=== PATIENT | male | born 1955 | race Caucasian/White ===

== ENCOUNTER → 2017-02-19 | Outpatient (CLI) | payer BC ==
[~2017-02-19] MED LIST: AMIT25TA PO; ASPI1TAB PO; ATOR40TA PO; SILD50TA GT
--- NOTE | 2017-02-20 02:33 | REP ---
Clinical: Acute cough . Comparison: None . Technique: PA and lateral. Findings: The mediastinum and cardiac silhouette are normal. The lung shen are clear and without acute consolidation, effusion, or pneumothorax. The skeletal structures are intact and normal. Impression: 1. No acute cardiopulmonary process. Signed by Mario Samuel MD 02/20/2017 02:24 A
== END ==
LOC: M WUC 18:13
PROVIDERS: ATTEND Physician Assistant
DX: R05 Cough (principal)

== ENCOUNTER 2018-11-23 06:27 | Inpatient (IN) | payer BC ==
[~2018-11-23] VITALS: Ht 167.6 cm; Wt 83.1 kg
[~2018-11-23 06:27] MED LIST changes: -ATOR40TA PO; +ATOR40TA75 PO
[2018-11-23] MEDS ORDERED: VENTAER INH (06:37)
[2018-11-23 07:06] LABS: HEMOGLOBIN 15.4 g/dl (13.5-17.5); MEAN CORPUSCULAR HEMOGLOBIN 30.8 pg (27.0-33.0); PLATELET COUNT, AUTOMATED 292 10^3/uL (150-450); WHITE BLOOD COUNT 7.2 10^3/uL (4.0-10.0)
[2018-11-23 07:17] LABS: ABG BASE EXCESS 0.6 (-2.0-2.0); ABG HCO3 23.4 MEQ/L (22.0-26.0); ABG O2 SATURATION 99.6 % (95.0-99.0); ABG PARTIAL PRESSURE CO2 32.6 mmHg (35.0-45.0); ABG STANDARD HCO3 25.1 MEQ/L (22.0-26.0); ABG TOTAL CO2 24.4 MEQ/L (23.0-31.0); ABG pH (ARTERIAL) 7.473 UNITS (7.350-7.450)
[2018-11-23 07:34] LABS: ACETAMINOPHEN LEVEL < 2.0 UG/ML (10.0-30.0); ALBUMIN 4.3 GM/DL (3.2-5.2); ALT/SGPT 44 U/L (12-78); BILIRUBIN,DIRECT 0.2 MG/DL (0.0-0.2); BILIRUBIN,TOTAL 0.5 MG/DL (0.2-1.0); BLOOD UREA NITROGEN 18 MG/DL (7-18); CALCIUM LEVEL 8.8 MG/DL (8.8-10.2); CARBON DIOXIDE LEVEL 27 MEQ/L (21-32); CHLORIDE LEVEL 103 MEQ/L (98-107); CREATININE FOR GFR 1.18 MG/DL (0.70-1.30); ETHYL ALCOHOL (ETHANOL) < 0.003 % (0.000-0.010); GLOMERULAR FILTRATION RATE > 60.0 (>49); GLUCOSE, FASTING 101 MG/DL (70-100); POTASSIUM SERUM 4.1 MEQ/L (3.5-5.1); SALICYLATE LEVEL < 1.7 MG/DL (5.0-30.0); SODIUM LEVEL 140 MEQ/L (136-145); TOTAL PROTEIN 7.3 GM/DL (6.4-8.2)
[2018-11-23 09:46] LABS: AMPHETAMINES LEVEL URINE NEGATIVE (NEGATIVE); BARBITURATES URINE NEGATIVE (NEGATIVE); BENZODIAZEPINES URINE NEGATIVE (NEGATIVE); CANNABINOIDS URINE NEGATIVE (NEGATIVE); COCAINE METABOLITE URINE NEGATIVE (NEGATIVE); METHADONE URINE NEGATIVE (NEGATIVE); OPIATES URINE NEGATIVE (NEGATIVE); PHENCYCLIDINE URINE NEGATIVE (NEGATIVE)
[2018-11-23] MEDS ORDERED: CHLORTHALIDONE 12.5MG PER 1/2 TABLET PO ONE (13:00)
[2018-11-23] MEDS ORDERED: SAW1000C PO (14:26)
[2018-11-23] MEDS ORDERED: VITMTA PO (14:26)
[2018-11-23] MEDS ORDERED: EQL50TAB4 PO (14:26)
[2018-11-23] MEDS ORDERED: CALC500C16 PO (14:26)
[2018-11-23] MEDS ORDERED: VITA100066 PO (14:26)
[2018-11-23] MEDS ORDERED: SILD20TA11 PO (14:26)
[2018-11-23] MEDS ORDERED: DULE100A INH (14:26)
[2018-11-23] MEDS ORDERED: VITA400C67 PO (14:27)
[2018-11-23] MEDS ORDERED: GARL10004 PO (14:28)
[2018-11-23] MEDS ORDERED: MAALOX 30 ML SUSP *UDC PO PRN (15:15)
[2018-11-23] MEDS ORDERED: ACETAMINOPHEN TAB 650MG DOSE (2X325MG) PO PRN (15:15)
[2018-11-23] MEDS ORDERED: MOM 30ML SUSPENSION UDC PO PRN (15:15)
[2018-11-23] MEDS ORDERED: traZODone 50 MG TAB PO PRN (15:15)
[2018-11-23 17:27] VITALS: BP 127/80
[2018-11-23] MEDS ORDERED: CALCIUM CARBONATE 500 MG CHEW U/D PO PRN (17:30)
[2018-11-23] MEDS: SYMBICORT 160/4.5MCG INHALER 6GM INH SCH (21:44)
[2018-11-23] MEDS: ATORVASTATIN 20 MG TAB PO SCH (21:45)
[2018-11-23] MEDS ORDERED: ALBUTEROL 90 MCG/ACT 8GM HFA INHALER INH PRN (22:30)
[2018-11-23] MEDS: AMITRIPTYLINE 25 MG TAB PO SCH (22:32)
[2018-11-24 06:45] VITALS: BP 134/89
[2018-11-24] MEDS: VITAMIN D 1,000 INTERNATIONAL UNITS TABLET PO SCH (09:20)
[2018-11-24] MEDS: ASPIRIN 81 MG ENTERIC TAB PO SCH (09:20)
[2018-11-24] MEDS: SYMBICORT 160/4.5MCG INHALER 6GM INH SCH ×2 (09:22→22:14)
--- NOTE | 2018-11-24 10:37 | MHHPEPDOC ---
General Date Of Admission: Nov 23, 2018 Legal Status: 9.39 Chief Complaint "I tried to kill myself." History of Present Illness HISTORY OF THE PRESENT ILLNESS: Patient is a 63 -year-old , male, with no previous psych history who was brought to ED by EMS due to CO exposure for approx 10min with a CO of 2 after attempting suicide. Per EMS in the ED, pt had left his house at 4am and his tried phoning and texting him with no answer until finally pt sent text stating "Sorry for what I did, but Im in a safe place." called police and went to [facility] with police and EMS where pt was found in his van slightly somnolent with his windows taped up and a hose running from his tailpipe to his window. Pt told police that he was trying to kill himself b/c he bought a new tablet and "I think I watched child porn on it" causing him to fear he would be arrested after he had been contacted by the police (to locate him) and attempted calling police back but no answer. Pt stated he knew someone he worked with that "blew his brains out" after he was watching child porn. 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 States he looked at his tablet and found something (child porn) he didn't remember searching for and thought police contacted him b/c they had a trace on him. States he knew a lucie that was facing 30yrs in intermediate for child porn. States he was thinking of killing b/c he could face putting his thru him being arrested. Pt appears depressed and internally anxious. States he feels slightly better today and denies SI. 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 Feels safe here. Psychiatric Review of Systems Depression (2 or more weeks): depressed mood, anhedonia, feelings of excess/guilt (guilt), feelings of worthlesness, difficulty concentrating, suicidal thoughts Vera (4 or more days of): denies Psychosis: denies PTSD: denies Anxiety: gen/non-specific anxiety, situational anxiety, stressor related anxiety Anxiety/ 6 months or more of: restlessness, keyed up, difficulty concentrating, irritability, sleep disturbance Past Psychiatric History Previous Psychiatric Diagnosis: Depression Previous Psychiatric Admissions: denies Suicide Attempts: denies Psychiatric Follow-up: denies Psychiatric medications: amitriptyline 25mg qhs Past Medical History Medical Problems HTH, high cholesterol, CAD, COPD Head Injury: No Seizures: No Hospitalizations: No Surgeries: No Family Medical/Psychiatric HX Medical Problems noncontributory Psychiatric Disorders: No Addiction: No Suicide Attemps/Completions: No Addiction History other (adult porn and beastiality) Social History Childhood: Pt is a Mennonite. [place], 2 parent home, 2 older brothers and 2 younger brothers and a younger sister. Good childhood. Abuse/Trauma: picked on in school due to being overweight. 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 Social Support: , [employer] Legal: denies Marital: , 3 daughters that live in the area and 1 daughter works for him Mental Status Examination General Appearance: well groomed, appears stated age, hospital scubs/clothing Build: average Demeanor: withdrawn, preoccupied, guarded, other (tearful) Activity: anxious Behavior: cooperative, anhedonia, withdrawn Speech: clear, reg/rate,rhythm,volume, non-spontaneous Mood: depressed, anxious Mood "depressed" Affect: constricted, flat, congruent, anxious Thought Process: logical/linear, intact Thought Content (Delusions): none reported, denies SI, HI, AVH Thought Content (Other): none reported, appropriate Thought Content (Aggressive): none reported Perception (Hallucinations): none reported Perception (Other): none reported Cognition (Impairment of): none reported Cognition(Intelligence Est.): MR, borderline Oriented: Awake, Alert, Oriented times three Psychosis: Denies Diagnoses Major Depressive D/O recurrent, severe, w/o psychosis ALEJANDRO Assessment Pt s/p SA by CO exposure seen today and regrets SA. Continues to endorse depression and anxiety mostly due to occupational stress. Endorses guilt regarding porn addiction. Agreeable to starting celexa for depression. Risks/benefits discussed. Denies SI/HI, hallucinations, delusions today. Feels safe here. Initial Treatment Plan 1. Patient was admitted on a 9.39 status. 2. Complete history was obtained. 3. With patients permission, family will be contacted and database will be expanded. 4. Patients medication regimen will be reviewed and changed accordingly. 5. Patient will be provided with protected environment. 6. Patient will be treated with individual, group, and milieu therapies. 7. Patient will receive supportive psych-education. 8. Discharge planning will commence immediately. 9. Outpatient follow-up treatment will be strongly recommended. 10. The initial treatment plan will focus initially on: * Depression. * Risk for suicide. * Substance abuse. 11. continue amitriptyline 25mg qhs and start celexa 10mg daily for depression. ESTIMATED LENGTH OF STAY: 7-9 DAYS. TIME SPENT COUNSELING AND COORDINATING INITIAL CARE: 60 minutes. Vital Signs Vital Signs Date Time Temp Pulse Resp B/P (MAP) Pulse Ox O2 Delivery O2 Flow Rate FiO2 11/24/18 06:45 98.0 70 16 134/89 (104) 11/23/18 17:27 97 11/23/18 16:24 Room Air Laboratory Data 24H Labs Laboratory Tests 2 11/24/18 06:37: Carboxyhemoglobin 2.1H Medications Scheduled (Dulera 100-5 Mcg/Act) 1 Aer Aer, 2 PUFFS INH BID, (Reported) (Garlic) 1,000 Mg Cap, 2,000 MG PO DAILY, (Reported) Amitriptyline HCl (Amitriptyline HCl) 25 Mg Tab, 25 MG PO QHS, (Reported) Aspirin (Aspirin 81) 81 Mg Tab, 81 MG PO DAILY, (Reported) Atorvastatin Calcium (Atorvastatin Calcium) 40 Mg Tab, 40 MG PO QHS, (Reported) Cholecalciferol (Vitamin D) 1,000 Unit Tab, 1,000 UNIT PO DAILY, (Reported) Multivitamins *SMC STOCKED* (Thera M Plus *SMC STOCKED*) 1 Tab Tab, 1 TAB PO DAILY, (Reported) Serenoa Repens (Saw Richmond/S (Saw Richmond) 1,000 Mg Cap, 2,000 MG PO DAILY, (Reported) Vitamin E (Vitamin E-400) 400 Unit Cap, 800 UNIT PO DAILY, (Reported) Zinc (Eql Natural Zinc) 50 Mg Tab, 50 MG PO DAILY, (Reported) Scheduled PRN Albuterol Sulfate (Ventolin Hfa) 108 Mcg/Act Aer, 2 PUFFS INH Q6H PRN for SH ORTNESS OF BREATH, (Reported) Calcium Carbonate (Calcium Carbonate) 500 Mg Chw, 1,000 MG PO DAILY PRN for HEARTBURN/INDIGESTION, (Reported) Sildenafil Citrate (Sildenafil Citrate) 20 Mg Tab, 20 MG PO DAILY PRN for ERECTILE DYSFUNCTION, (Reported) Allergies Coded Allergies: Ibuprofen (Verified Adverse Reaction, Mild, upset stomach, 11/23/18) OVIDIO HDEZ DO Nov 24, 2018 10:37
[2018-11-24] MEDS ORDERED: CitaloPRAM (CeleXA) 10 MG TABLET PO ONE (11:00)
--- NOTE | 2018-11-24 12:46 | HPE ---
DATE OF ADMISSION: 11/23/2018 Please refer to psychiatric history and evaluation for further details on this admission. This examination and history is intended for medical issues, which may need treatment, followup, or consult on this 63-year-old male. PRIMARY CARE PROVIDER: Clemencia Pedro MD ALLERGIES: IBUPROFEN. SOCIAL HISTORY: He is . He does not drink alcohol. He does not smoke cigarettes. He does not use recreational drugs. PAST MEDICAL HISTORY: Hypercholesterolemia. Vitamin D deficiency. Erectile dysfunction. PAST SURGICAL HISTORY: Colonoscopy 06/19/2005. Epididectomy HOME MEDICATIONS: - Ventolin two puffs inhalation every 6 hours as needed for shortness of breath - amitriptyline 25 mg by mouth nightly - multivitamin one by mouth daily - sildenafil citrate 20 mg daily as needed erectile dysfunction - vitamin E 800 units by mouth daily - garlic 2000 mg by mouth daily - saw palmetto 1000 mg capsule, takes 2000 mg by mouth daily - zinc 50 mg by mouth daily - aspirin 81 mg by mouth daily - atorvastatin 40 mg by mouth nightly - calcium carbonate 1000 mg by mouth daily as needed heartburn - vitamin D 1000 units by mouth daily - Dulera two puffs inhalation twice a day LABORATORY STUDIES: Complete blood count (CBC) was normal. Electrolytes were normal. BUN was 18, creatinine was 1.10, TSH was 4.010. Toxicology screen was negative. The patient had been found with his windows taped shut and a hose from his exhaust in his car. Carboxyhemoglobin in the emergency room (ER) was 2.0. Will recheck in the a.m. Arterial blood gas (ABG): pH was 7.473, PCO2 was 32.6, pO2 was 303, HCO3 was 23.4, and total CO2 was 24.4, oxygen (O2) saturation was 99.6. Urine for toxicology was negative. FAMILY HISTORY: Noncontributory. Eleven systems review was done and was unremarkable. The patient had no complaints. PHYSICAL EXAMINATION: A 63-year-old cooperative male, in no acute distress. Height 66 inches, weight 81.7 kg, body mass index (BMI) 21.1, blood pressure 127/80, pulse 73, respirations 16, temperature 97.6, O2 saturation 97% on room air. The patient is alert and oriented times three. Pupils are equal and react to light. Extraocular movements (EOMs) intact. Cornea and sclerae clear. Conjunctivae normal. No facial asymmetry. Pharynx, tongue, gums pink and moist. Tongue is midline. NECK: Is supple without lymphadenopathy. No thyromegaly. No goiter. CHEST: Clear to auscultation without wheeze or retraction. HEART: Is regular. ABDOMEN: Benign. Bowel sounds positive. GENITOURINARY ()/RECTAL: Not done. EXTREMITIES: Show equal strength, full range of motion. No cyanosis, clubbing, or edema. Peripheral pulses equal and palpable bilaterally. Cranial nerves II-XII grossly intact. IMPRESSION AND PLAN: 1. Psychiatric plan per psychiatry. 2. Hypercholesterolemia. Continue atorvastatin, low-fat low-cholesterol diet. 3. Vitamin D deficiency. Continue vitamin D. Continued followup as outpatient with primary care provider. 4. No acute medical issues. MTDD
[2018-11-24 18:00] VITALS: BP 152/95
[2018-11-24] MEDS: ATORVASTATIN 20 MG TAB PO SCH (22:14)
[2018-11-24] MEDS: AMITRIPTYLINE 25 MG TAB PO SCH (22:14)
--- NOTE | 2018-11-25 00:38 | ECGEPIP ---
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
[2018-11-25 06:46] VITALS: BP 139/90
[2018-11-25] MEDS: SYMBICORT 160/4.5MCG INHALER 6GM INH SCH ×2 (09:07→21:45)
[2018-11-25] MEDS: VITAMIN D 1,000 INTERNATIONAL UNITS TABLET PO SCH (09:08)
[2018-11-25] MEDS: CitaloPRAM (CeleXA) 10 MG TABLET PO SCH (09:08)
[2018-11-25] MEDS: ASPIRIN 81 MG ENTERIC TAB PO SCH (09:08)
--- NOTE | 2018-11-25 10:36 | MHIPNPDOC ---
[facility] Progress Note Progress Note DATE OF SERVICE: 11/25/18 HISTORY: Patient is a 63 -year-old , male, with no previous psych history who was brought to ED by EMS due to CO exposure for approx 10min with a CO of 2 after attempting suicide. Per EMS in the ED, pt had left his house at 4am and his tried phoning and texting him with no answer until finally pt sent text stating "Sorry for what I did, but Im in a safe place." called police and went to [facility] with police and EMS where pt was found in his van slightly somnolent with his windows taped up and a hose running from his ta ilpipe to his window. Pt told police that he was trying to kill himself b/c he bought a new tablet and "I think I watched child porn on it" causing him to fear he would be arrested after he had been contacted by the police (to locate him) and attempted calling police back but no answer. Pt stated he knew someone he worked with that "blew his brains out" after he was watching child porn. 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 States he looked at his tablet and found something (child porn) he didn't remember searching for and thought police contacted him b/c they had a trace on him. States he knew a lucie that was facing 30yrs in nursing home for child porn. States he was thinking of killing b/c he could face putting his thru him being arrested. Pt appears depressed and internally anxious. States he feels slightly better today and denies SI. 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 Feels safe here. VITAL SIGNS: See below. NEW TEST RESULTS: See below. CURRENT MEDICATIONS: See below. MENTAL STATUS EXAMINATION: General Appearance: well groomed, appears stated age, own clothing Build: average Demeanor: withdrawn, preoccupied Activity: anxious Behavior: cooperative, anhedonia, withdrawn Speech: clear, reg/rate,rhythm,volume, non-spontaneous Mood: very depressed, anxious Mood "depressed" Affect: very constricted, flat, congruent, anxious Thought Process: logical/linear, intact, worrisome thoughts about his business, depressed Thought Content (Delusions): none reported, denies SI, HI, AVH Thought Content (Other): none reported, appropriate Thought Content (Aggressive): none reported Perception (Hallucinations): none reported Perception (Other): none reported Cognition (Impairment of): none reported Cognition(Intelligence Est.): average Oriented: Awake, Alert, Oriented times three Psychosis: Denies DIAGNOSES: Major Depressive D/O recurrent, severe, w/o psychosis ALEJANDRO ASSESSMENT:Pt seen and states he feels a bit better today after getting a full night of sleep last night. Continues to endorse depression and worrisome thoughts mostly about the abilities of his family members to take care of his business. Encouraged to think about his mental health and current treatment rather than is business b/c right now is the time for him to do it and to have graeme his family members can handle the business. Pt reminded that if he plans to retire in the future and give his business to his daughter and son-in-law he must be able to let go his control. States he realizes that but thought the though appears to create internal worrisome anxiety. States he thinks back to his suicide attempt is scared by the fact that he was so calm about it after he made the decision and got the stuff to do it. Denies that he ever wants or plans to do something like that again. States his came to visit him and that she's very supportive. States he slept well last night. Feels he is tolerating his celexa but has yet to feel if it's beneficial. He is attending groups and finding them helpful. He denies insomnia, SI/HI, hallucinations, delusions. Continues to appear very depressed and anxious. Pt feels safe here. MANAGEMENT PLAN: continue current plan. Medications: amitriptyline 25mg qhs celexa 10mg daily TIME SPENT: 30 minutes. Vital Signs Vital Signs Date Time Temp Pulse Resp B/P (MAP) Pulse Ox O2 Delivery O2 Flow Rate FiO2 11/25/18 06:46 98.7 91 14 139/90 (106) 11/24/18 18:00 97 11/24/18 10:02 Room Air Current Medications Current Medications Acetaminophen (Tylenol Tab) 650 mg Q6HP PRN PO HEADACHE or DISCOMFORT; Start 11/23/18 at 15:15 Al Hydrox/Mg Hydrox/Simethicone (Mylanta) 30 ml Q4HP PRN PO HEARTBURN/INDIGESTION; Start 11/23/18 at 15:15 Albuterol Sulfate (Proventil, Ventolin Hfa) 2 puff Q6H PRN INH SHORTNESS OF BREATH; Start 11/23/18 at 22:30 Amitriptyline HCl (Elavil) 25 mg QHS PO Last administered on 11/24/18 22:14; Start 11/23/18 at 22:32 Aspirin (Ecotrin) 81 mg DAILY PO Last administered on 11/25/18 09:08; Start 11/24/18 at 09:00 Atorvastatin Calcium (Lipitor) 40 mg QHS PO Last administered on 11/24/18 22:14; Start 11/23/18 at 21:00 Budesonide/ Formoterol Fumarate (Symbicort 160/ 4.5mcg) 2 puff BID INH Last administered on 11/25/18 09:07; Start 11/23/18 at 21:00 Calcium Carbonate (Tums) 1,000 mg DAILY PRN PO HEARTBURN/INDIGESTION Last administered on 11/24/18 18:29; Start 11/23/18 at 17:30 Citalopram Hydrobromide (CeleXA) 10 mg DAILY PO Last administered on 11/25/18 09:08; Start 11/25/18 at 09:00 Home Med (Med Rec Complete!) ASDIRECTED XX ; Start 11/23/18 at 14:30; Stop 11/23/18 at 14:34; Status DC Magnesium Hydroxide (Milk Of Magnesia) 30 ml DAILYPRN PRN PO CONSTIPATION; Start 11/23/18 at 15:15 Trazodone HCl (Desyrel) 50 mg QHSP PRN PO INSOMNIA Last administered on 11/23/18 23:56; Start 11/23/18 at 15:15 Vitamin D (Vitamin D) 1,000 units DAILY PO Last administered on 11/25/18at 09:08; Start 11/24/18 at 09:00 Allergies Coded Allergies: Ibuprofen (Verified Adverse Reaction, Mild, upset stomach, 11/23/18) OVIDIO HDEZ DO Nov 25, 2018 9:20 am
[2018-11-25 18:00] VITALS: BP 126/81
[2018-11-25] MEDS: ATORVASTATIN 20 MG TAB PO SCH (21:45)
[2018-11-25] MEDS: AMITRIPTYLINE 25 MG TAB PO SCH (21:45)
[2018-11-26 06:30] VITALS: BP 134/89
[2018-11-26] MEDS: VITAMIN D 1,000 INTERNATIONAL UNITS TABLET PO SCH (08:40)
[2018-11-26] MEDS: ASPIRIN 81 MG ENTERIC TAB PO SCH (08:40)
[2018-11-26] MEDS: CitaloPRAM (CeleXA) 10 MG TABLET PO SCH (08:40)
[2018-11-26] MEDS: SYMBICORT 160/4.5MCG INHALER 6GM INH SCH ×2 (08:40→21:02)
--- NOTE | 2018-11-26 10:04 | MHIPNPDOC ---
[facility] Progress Note Progress Note DATE OF SERVICE: 11/26/18 HISTORY: Patient is a 63 -year-old , male, with no previous psych history who was brought to ED by EMS due to CO exposure for approx 10min with a CO of 2 after attempting suicide. Per EMS in the ED, pt had left his house at 4am and his tried phoning and texting him with no answer until finally pt sent text stating "Sorry for what I did, but Im in a safe place." called police and went to [facility] with police and EMS where pt was found in his van slightly somnolent with his windows taped up and a hose running from his ta ilpipe to his window. Pt told police that he was trying to kill himself b/c he bought a new tablet and "I think I watched child porn on it" causing him to fear he would be arrested after he had been contacted by the police (to locate him) and attempted calling police back but no answer. Pt stated he knew someone he worked with that "blew his brains out" after he was watching child porn. 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 States he looked at his tablet and found something (child porn) he didn't remember searching for and thought police contacted him b/c they had a trace on him. States he knew a lucie that was facing 30yrs in penitentiary for child porn. States he was thinking of killing b/c he could face putting his thru him being arrested. Pt appears depressed and internally anxious. States he feels slightly better today and denies SI. 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 Feels safe here. VITAL SIGNS: See below. NEW TEST RESULTS: See below. CURRENT MEDICATIONS: See below. MENTAL STATUS EXAMINATION: General Appearance: well groomed, appears stated age, own clothing Build: average Demeanor: less preoccupied by worrisome thoughts about his business, appears more relieved Activity: calmer today and pleasant Behavior: cooperative, anhedonia, withdrawn Speech: clear, reg/rate,rhythm,volume, non-spontaneous Mood: less depressed, less anxious Mood "better" Affect: less constricted and flat, congruent, less anxious Thought Process: logical/linear, intact, improving worrisome thoughts about his business, less depressed Thought Content (Delusions): none reported, denies SI, HI, AVH Thought Content (Other): none reported, appropriate Thought Content (Aggressive): none reported Perception (Hallucinations): none reported Perception (Other): none reported Cognition (Impairment of): none reported Cognition(Intelligence Est.): average Oriented: Awake, Alert, Oriented times three Psychosis: Denies DIAGNOSES: Major Depressive D/O recurrent, severe, w/o psychosis ALEJANDRO ASSESSMENT:Pt seen and states he feels like he's getting better as his came to visit him last night and they had a good talk. States my "laid down the law to my daughter and son-in-law... my son-in-law had tears in his eyes and they said they were going to step up and handle things" regarding the business so the pt could think more about himself and getting better. Able to discuss prospects of eventually retiring from his business and either letting his family run it or selling depending on what they want. Has graeme that his family will take care of his business which takes a lot of pressure off him. Appears much more calm with less anxious worry. States his mood is improving and his "thoughts are more clear" with the use of celexa and getting good sleep at night. States he's tolerating his medication well. Regrets SA. He is attending groups and finding them helpful. Reading in his free time which he enjoys. He denies insomnia, SI/HI, hallucinations, delusions. Improving depr ession and anxiety. Pt feels safe here. MANAGEMENT PLAN: continue current plan. Medications: amitriptyline 25mg qhs celexa 10mg daily TIME SPENT: 30 minutes. Vital Signs Vital Signs Date Time Temp Pulse Resp B/P (MAP) Pulse Ox O2 Delivery O2 Flow Rate FiO2 11/26/18 06:30 97.9 85 16 134/89 (104) 11/24/18 18:00 97 11/24/18 10:02 Room Air Current Medications Current Medications Acetaminophen (Tylenol Tab) 650 mg Q6HP PRN PO HEADACHE or DISCOMFORT; Start 11/23/18 at 15:15 Al Hydrox/Mg Hydrox/Simethicone (Mylanta) 30 ml Q4HP PRN PO HEARTBURN/INDIGESTION; Start 11/23/18 at 15:15 Albuterol Sulfate (Proventil, Ventolin Hfa) 2 puff Q6H PRN INH SHORTNESS OF BREATH; Start 11/23/18 at 22:30 Amitriptyline HCl (Elavil) 25 mg QHS PO Last administered on 11/25/18 21:45; Start 11/23/18 at 22:32 Aspirin (Ecotrin) 81 mg DAILY PO Last administered on 11/26/18 08:40; Start 11/24/18 at 09:00 Atorvastatin Calcium (Lipitor) 40 mg QHS PO Last administered on 11/25/18 21:45; Start 11/23/18 at 21:00 Budesonide/ Formoterol Fumarate (Symbicort 160/ 4.5mcg) 2 puff BID INH Last administered on 11/26/18 08:40; Start 11/23/18 at 21:00 Calcium Carbonate (Tums) 1,000 mg DAILY PRN PO HEARTBURN/INDIGESTION Last administered on 11/24/18 18:29; Start 11/23/18 at 17:30 Citalopram Hydrobromide (CeleXA) 10 mg DAILY PO Last administered on 11/26/18 08:40; Start 11/25/18 at 09:00 Home Med (Med Rec Complete!) ASDIRECTED XX ; Start 11/23/18 at 14:30; Stop 11/23/18 at 14:34; Status DC Magnesium Hydroxide (Milk Of Magnesia) 30 ml DAILYPRN PRN PO CONSTIPATION; Start 11/23/18 at 15:15 Trazodone HCl (Desyrel) 50 mg QHSP PRN PO INSOMNIA Last administered on 11/23/18at 23:56; Start 11/23/18 at 15:15 Vitamin D (Vitamin D) 1,000 units DAILY PO Last administered on 11/26/18at 08:40; Start 11/24/18 at 09:00 Allergies Coded Allergies: Ibuprofen (Verified Adverse Reaction, Mild, upset stomach, 11/23/18) OVIDIO HDEZ DO Nov 26, 2018 10:04 am
[2018-11-26 18:00] VITALS: BP 140/86
[2018-11-26] MEDS: ATORVASTATIN 20 MG TAB PO SCH (21:02)
[2018-11-26] MEDS: AMITRIPTYLINE 25 MG TAB PO SCH (21:02)
[2018-11-27 06:41] VITALS: BP 123/73
[2018-11-27] MEDS: VITAMIN D 1,000 INTERNATIONAL UNITS TABLET PO SCH (08:45)
[2018-11-27] MEDS: SYMBICORT 160/4.5MCG INHALER 6GM INH SCH ×2 (08:45→21:10)
[2018-11-27] MEDS: ASPIRIN 81 MG ENTERIC TAB PO SCH (08:45)
[2018-11-27] MEDS: CitaloPRAM (CeleXA) 10 MG TABLET PO SCH (08:45)
--- NOTE | 2018-11-27 09:47 | MHIPNPDOC ---
[facility] Progress Note Progress Note DATE OF SERVICE: 11/27/18 HISTORY: Patient is a 63 -year-old , male, with no previous psych history who was brought to ED by EMS due to CO exposure for approx 10min with a CO of 2 after attempting suicide. Per EMS in the ED, pt had left his house at 4am and his tried phoning and texting him with no answer until finally pt sent text stating "Sorry for what I did, but Im in a safe place." called police and went to [facility] with police and EMS where pt was found in his van slightly somnolent with his windows taped up and a hose running from his ta ilpipe to his window. Pt told police that he was trying to kill himself b/c he bought a new tablet and "I think I watched child porn on it" causing him to fear he would be arrested after he had been contacted by the police (to locate him) and attempted calling police back but no answer. Pt stated he knew someone he worked with that "blew his brains out" after he was watching child porn. 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 States he looked at his tablet and found something (child porn) he didn't remember searching for and thought police contacted him b/c they had a trace on him. States he knew a lucie that was facing 30yrs in senior care for child porn. States he was thinking of killing b/c he could face putting his thru him being arrested. Pt appears depressed and internally anxious. States he feels slightly better today and denies SI. 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 Feels safe here. VITAL SIGNS: See below. NEW TEST RESULTS: See below. CURRENT MEDICATIONS: See below. MENTAL STATUS EXAMINATION: General Appearance: well groomed, appears stated age, own clothing Build: average Demeanor: less preoccupied by worrisome thoughts about his business, appears more relieved Activity: calmer today and pleasant Behavior: cooperative, anhedonia, withdrawn Speech: clear, reg/rate,rhythm,volume, non-spontaneous Mood: less depressed, less anxious Mood "ok" Affect: less constricted and flat, congruent, less anxious Thought Process: logical/linear, intact, improving worrisome thoughts about his business, less depressed Thought Content (Delusions): none reported, denies SI, HI, AVH Thought Content (Other): none reported, appropriate Thought Content (Aggressive): none reported Perception (Hallucinations): none reported Perception (Other): none reported Cognition (Impairment of): none reported Cognition(Intelligence Est.): average Oriented: Awake, Alert, Oriented times three Psychosis: Denies DIAGNOSES: Major Depressive D/O recurrent, severe, w/o psychosis ALEJANDRO ASSESSMENT:Pt seen and states he feels "better" today. States his visits him daily and that his son-in-law and daughter are taking good care of his business with eases his anxiety and worry really well. States he's able to focus on his treatment here and his mental health which is beneficial knowing his business is being well cared for. Continues to appear more calm with less anxious worry daily. States his mood is improving daily with the use of celexa and getting good sleep at night. States he's tolerating his medication well. Regrets SA. He is attending groups and finding them helpful. Reading in his free time which he enjoys. He denies insomnia, SI/HI, hallucinations, delusions. Improving depression and anxiety. Pt feels safe here. MANAGEMENT PLAN: continue current plan. Medications: amitriptyline 25mg qhs celexa 10mg daily TIME SPENT: 30 minutes. Vital Signs Vital Signs Date Time Temp Pulse Resp B/P (MAP) Pulse Ox O2 Delivery O2 Flow Rate FiO2 11/27/18 06:41 98.4 95 16 123/73 (90) 11/24/18 18:00 97 11/24/18 10:02 Room Air Current Medications Current Medications Acetaminophen (Tylenol Tab) 650 mg Q6HP PRN PO HEADACHE or DISCOMFORT; Start 11/23/18 at 15:15 Al Hydrox/Mg Hydrox/Simethicone (Mylanta) 30 ml Q4HP PRN PO HEARTBURN/INDIGE STION; Start 11/23/18 at 15:15 Albuterol Sulfate (Proventil, Ventolin Hfa) 2 puff Q6H PRN INH SHORTNESS OF BREATH; Start 11/23/18 at 22:30 Amitriptyline HCl (Elavil) 25 mg QHS PO Last administered on 11/26/18 21:02; Start 11/23/18 at 22:32 Aspirin (Ecotrin) 81 mg DAILY PO Last administered on 11/27/18 08:45; Start 11/24/18 at 09:00 Atorvastatin Calcium (Lipitor) 40 mg QHS PO Last administered on 11/26/18 21:02; Start 11/23/18 at 21:00 Budesonide/ Formoterol Fumarate (Symbicort 160/ 4.5mcg) 2 puff BID INH Last administered on 11/27/18 08:45; Start 11/23/18 at 21:00 Calcium Carbonate (Tums) 1,000 mg DAILY PRN PO HEARTBURN/INDIGESTION Last administered on 11/24/18 18:29; Start 11/23/18 at 17:30 Citalopram Hydrobromide (CeleXA) 10 mg DAILY PO Last administered on 11/27/18 08:45; Start 11/25/18 at 09:00 Home Med (Med Rec Complete!) ASDIRECTED XX ; Start 11/23/18 at 14:30; Stop 11/23/18 at 14:34; Status DC Magnesium Hydroxide (Milk Of Magnesia) 30 ml DAILYPRN PRN PO CONSTIPATION; Start 11/23/18 at 15:15 Trazodone HCl (Desyrel) 50 mg QHSP PRN PO INSOMNIA Last administered on 11/23/18 23:56; Start 11/23/18 at 15:15 Vitamin D (Vitamin D) 1,000 units DAILY PO Last administered on 11/27/18 08:45; Start 11/24/18 at 09:00 Allergies Coded Allergies: Ibuprofen (Verified Adverse Reaction, Mild, upset stomach, 11/23/18) OVIDIO HDEZ DO Nov 27, 2018 9:47 am
[2018-11-27 18:00] VITALS: BP 139/76
[2018-11-27] MEDS: AMITRIPTYLINE 25 MG TAB PO SCH (21:09)
[2018-11-27] MEDS: ATORVASTATIN 20 MG TAB PO SCH (21:09)
[2018-11-28 06:41] VITALS: BP 125/87
[2018-11-28] MEDS: VITAMIN D 1,000 INTERNATIONAL UNITS TABLET PO SCH (08:19)
[2018-11-28] MEDS: SYMBICORT 160/4.5MCG INHALER 6GM INH SCH (08:19)
[2018-11-28] MEDS: CitaloPRAM (CeleXA) 10 MG TABLET PO SCH (08:19)
[2018-11-28] MEDS: ASPIRIN 81 MG ENTERIC TAB PO SCH (08:19)
--- NOTE | 2018-11-28 09:52 | MHDSPDOC ---
[facility] Discharge Summary Discharge Summary DATE OF ADMISSION: Nov 23, 2018 at 3:11 pm DATE OF DISCHARGE: Nov 28, 2018 DISCHARGE DIAGNOSES: Major Depressive D/O recurrent, severe, w/o psychosis ALEJANDRO REASON FOR ADMISSION: Patient is a 63 -year-old , male, with no previous psych history who was brought to ED by EMS due to CO exposure for a pprox 10min with a CO of 2 after attempting suicide. Per EMS in the ED, pt had left his house at 4am and his tried phoning and texting him with no answer until finally pt sent text stating "Sorry for what I did, but Im in a safe place." called police and went to [facility] with police and EMS where pt was found in his van slightly somnolent with his windows taped up and a hose running from his tailpipe to his window. Pt told police that he was trying to kill himself b/c he bought a new tablet and "I think I watched child porn on it" causing him to fear he would be arrested after he had been contacted by the police (to locate him) and attempted calling police back but no answer. Pt stated he knew someone he worked with that "blew his brains out" after he was watching child porn. 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 States he looked at his tablet and found something (child porn) he didn't remember searching for and thought police contacted him b/c they had a trace on him. States he knew a lucie that was facing 30yrs in assisted for child porn. States he was thinking of killing b/c he could face putting his thru him being arrested. Pt appears depressed and internally anxious. States he feels slightly better today and denies SI. 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 Feels safe here. CONSULTANTS INVOLVED: none TREATMENT AND PROGRESS ON THE UNIT : Pt was admitted to [facility], seen for psychiatric assessment and restarted on his outpatient medication amitriptyline 25mg qhs for sleep. He was started on celexa 10mg daily for mood. He was continued on his outpatient medical meds. Pt found his medications beneficial and tolerated them well. He attended groups daily during his stay. His visited him daily and told him his daughter and son-in-law where managing his business well which very much eased his anxiety. His symptoms improved with treatment. On day of discharge he denied depression, anxiety, insomnia, SI/HI, hallucinations, delusions. He stated he regretted his SA. He was discharged home after family meeting with his with follow-up at [facility]. He felt safe for discharge. DISCHARGE ASSESSMENT: Pt seen and states he feels "good" today and is looking forward to going home with his today. States his has been visiting him daily and that his son-in-law and daughter are taking good care of his business with eases his anxiety and worry really well. States he has been able to focus on his treatment here and his mental health which is beneficial knowing his business is being well cared for. Depression and anxiety appear greatly improved. States he's tolerating his medication well and finding it very beneficial. Regrets SA. States he's sleeping well nightly He is attending groups and finding them helpful. Reading in his free time which he enjoys. He denies depression, anxiety, insomnia, SI/HI, hallucinations, delusions. Im proving depression and anxiety. Pt feels safe to be discharged home with his . MENTAL STATUS EXAMINATION ON DISCHARGE: General Appearance: well groomed, appears stated age, own clothing Build: average Demeanor: less preoccupied by worrisome thoughts about his business, appears more relieved Activity: calm and pleasant Behavior: cooperative Speech: clear, reg/rate,rhythm,volume, non-spontaneous Mood: euthymic, full range Mood "good" Affect: euthymic, full range, congruent Thought Process: logical/linear, intact Thought Content (Delusions): none reported, denies SI, HI, AVH Thought Content (Other): none reported, appropriate Thought Content (Aggressive): none reported Perception (Hallucinations): none reported Perception (Other): none reported Cognition (Impairment of): none reported Cognition(Intelligence Est.): average Insight: good Judgement: good Oriented: Awake, Alert, Oriented times three Psychosis: Denies MEDICATIONS ON DISCHARGE: amitriptyline 25mg qhs celexa 10mg daily PLAN/FOLLOWUP ARRANGEMENTS: D/c home with with follow-up at [facility] The amount of time spent in the coordination of care for this patient was approximately 30 minutes. Vital Signs/I&Os Vital Signs Date Time Temp Pulse Resp B/P (MAP) Pulse Ox O2 Delivery O2 Flow Rate FiO2 11/28/18 06:41 98.2 97 16 125/87 (100) 11/24/18 18:00 97 11/24/18 10:02 Room Air Medications Scheduled (Dulera 100-5 Mcg/Act) 1 Aer Aer, 2 PUFFS INH BID, (Reported) (Garlic) 1,000 Mg Cap, 2,000 MG PO DAILY, (Reported) Amitriptyline HCl (Amitriptyline HCl) 25 Mg Tab, 25 MG PO QHS, (Reported) Aspirin (Aspirin 81) 81 Mg Tab, 81 MG PO DAILY, (Reported) Atorvastatin Calcium (Atorvastatin Calcium) 40 Mg Tab, 40 MG PO QHS, (Reported) Cholecalciferol (Vitamin D) 1,000 Unit Tab, 1,000 UNIT PO DAILY, (Reported) Multivitamins *[facility] STOCKED* (Thera M Plus *[facility] STOCKED*) 1 Tab Tab, 1 TAB PO DAILY, (Reported) Serenoa Repens (Saw [place]/S (Saw [place]) 1,000 Mg Cap, 2,000 MG PO DAILY, (Reported) Vitamin E (Vitamin E-400) 400 Unit Cap, 800 UNIT PO DAILY, (Reported) Zinc (Eql Natural Zinc) 50 Mg Tab, 50 MG PO DAILY, (Reported) Scheduled PRN Albuterol Sulfate (Ventolin Hfa) 108 Mcg/Act Aer, 2 PUFFS INH Q6H PRN for SH ORTNESS OF BREATH, (Reported) Calcium Carbonate (Calcium Carbonate) 500 Mg Chw, 1,000 MG PO DAILY PRN for HEARTBURN/INDIGESTION, (Reported) Sildenafil Citrate (Sildenafil Citrate) 20 Mg Tab, 20 MG PO DAILY PRN for ERECTILE DYSFUNCTION, (Reported) Allergies Coded Allergies: Ibuprofen (Verified Adverse Reaction, Mild, upset stomach, 2/2/19) OVIDIO HDEZ DO Nov 28, 2018 9:52 am
[2018-11-28] MEDS ORDERED: CELE10TA PO (09:54)
[2018-11-28] MEDS ORDERED: AMIT25TA PO (09:54)
== END 2018-11-28 10:50 | disposition home or self-care (01) | DRG 751 ==
LOC: M ED 06:27 → M ED INP 15:11 → M PSY 17:25
PROVIDERS: ADMIT Psychiatry & Neurology Psychiatry; ATTEND Psychiatry & Neurology Psychiatry
DX: F32.2 Major depressive disorder, single episode, severe without psychotic features (principal); E55.9 Vitamin D deficiency, unspecified; F41.1 Generalized anxiety disorder; Z79.899 Other long term (current) drug therapy; Z88.6 Allergy status to analgesic agent; Z79.82 Long term (current) use of aspirin; E78.00 Pure hypercholesterolemia, unspecified

== ENCOUNTER → 2021-04-01 | Outpatient (CLI) | payer BC ==
[~2021-04-01] MED LIST changes: -AMIT25TA PO; +AMIT25TA17 PO; +ARNU1INH3 IN; -ASPI1TAB PO; +ASPI81TA26 PO; +CALC500C16 PO; +CELE10TA PO; +DULE100A INH; +GARL10004 PO; +SAW1000C PO; +SILD20TA11 PO; +VENTAER INH; +VITA100066 PO; +VITA400C67 PO; +VITMTA PO; +ZINC1TAB2 PO
== END ==
LOC: M LABSMTC 11:27
PROVIDERS: ATTEND Anesthesiology
DX: Z20.828 Contact with and (suspected) exposure to other viral communicable diseases (principal); Z11.59 Encounter for screening for other viral diseases

== ENCOUNTER → 2022-08-23 | Outpatient (CLI) | payer MEDICARE | LOC: M WUC 09:05 | PROVIDERS: ATTEND Internal Medicine | DX: M25.511 Pain in right shoulder (principal) ==

== ENCOUNTER → 2024-05-05 | Outpatient (CLI) | payer MEDICARE ==
[~2024-05-05] MED LIST changes: -AMIT25TA17 PO; +AMIT25TA19 PO; -DULE100A INH; +E-Z-GAS II EFFERVESCENT PACKET (SODIUM BICARB./CITRIC ACID/SIMETHICONE) As Ordered ONE; +E-Z-HD 98% w/w 340GM SUSP BTL As Ordered ONE; +E-Z-PAQUE 96% w/w SUSP 176GM BTL As Ordered ONE; +MOME13HF8 INH
== END ==
LOC: M RAD 08:57
PROVIDERS: ATTEND Internal Medicine
DX: R13.10 Dysphagia, unspecified (principal)

== ENCOUNTER 2024-06-11 12:25 | Day surgery (SDC) | payer MEDICARE ==
[~2024-06-11] VITALS: Ht 167.6 cm; Wt 89.8 kg
[~2024-06-11 12:25] MED LIST changes: +ALFU10TA23 PO; +CITA20TA6 PO; -E-Z-GAS II EFFERVESCENT PACKET (SODIUM BICARB./CITRIC ACID/SIMETHICONE) As Ordered ONE; -E-Z-HD 98% w/w 340GM SUSP BTL As Ordered ONE; -E-Z-PAQUE 96% w/w SUSP 176GM BTL As Ordered ONE; +GALZ50CA PO; +GARL500C6 PO; +LISI20TA33 PO; +NS 1,000 ML IV ONE; +OMEP40CA5 PO; +SAW500CA7 PO; +THERTAB52 PO; +VITA200012 PO; +VITA400T26 PO
[2024-06-11] MEDS ORDERED: fentaNYL 100 MCG/2 ML INJECTION As Ordered ONE (13:33)
[2024-06-11] MEDS ORDERED: propofoL 200 MG/20 ML VIAL As Ordered ONE (13:49)
[2024-06-11] MEDS ORDERED: LIDOCAINE 2% 100MG/5ML SDV (FOR ANES.) As Ordered ONE (13:50)
[2024-06-11 14:06] VITALS: TEMP 98.3
[2024-06-11 14:29] VITALS: BP 155/95; O2SAT 96
== END 2024-06-11 14:30 | disposition home or self-care (01) ==
LOC: M OPP 12:25
PROVIDERS: ATTEND Internal Medicine Gastroenterology
DX: K44.9 Diaphragmatic hernia without obstruction or gangrene (principal); K22.89 Other specified disease of esophagus; R12 Heartburn; R93.3 Abnormal findings on diagnostic imaging of other parts of digestive tract; I10 Essential (primary) hypertension; E78.00 Pure hypercholesterolemia, unspecified; Z79.899 Other long term (current) drug therapy
CPT/HCPCS: 43239; 88305; J3010

== ENCOUNTER 2025-09-07 09:14 | Day surgery (SDC) | payer MEDICARE ==
[~2025-09-07] VITALS: Ht 162.6 cm; Wt 84.6 kg
[~2025-09-07 09:14] MED LIST changes: +AMIT50TA PO; +ARNU1INH; -GALZ50CA PO; +MESA1000 PR; -NS 1,000 ML IV ONE; +PANT40TA29 PO; -SILD20TA11 PO; +SILD20TA64 PO; +ZINC50CA4 PO
[2025-09-07 10:58] VITALS: TEMP 98.4
[2025-09-07 11:17] VITALS: BP 140/90; O2SAT 96
== END 2025-09-07 11:24 | disposition home or self-care (01) ==
LOC: M OPP 09:14
PROVIDERS: ATTEND Internal Medicine Gastroenterology
DX: K51.30 Ulcerative (chronic) rectosigmoiditis without complications (principal); Z88.6 Allergy status to analgesic agent; Z88.7 Allergy status to serum and vaccine; Z79.51 Long term (current) use of inhaled steroids; Z79.899 Other long term (current) drug therapy; J45.909 Unspecified asthma, uncomplicated

== ENCOUNTER → 2025-09-15 | Outpatient (CLI) | payer MEDICARE | LOC: M PLALAB 13:35 | PROVIDERS: ATTEND Orthopaedic Surgery | DX: Z01.818 Encounter for other preprocedural examination (principal) ==

== ENCOUNTER → 2025-09-23 | Outpatient (REF) | payer MEDICARE ==
[2025-09-23 12:40] LABS: INR 1.0
== END ==
LOC: M LAB REF 12:23
PROVIDERS: ATTEND Internal Medicine
DX: Z01.818 Encounter for other preprocedural examination (principal)